=== PATIENT | female | born 1965 | race Caucasian/White ===

== ENCOUNTER → 2024-11-07 | Outpatient (CLI) | payer OTHER, SELFPAY ==
[2024-11-10 09:08] LABS: HPV APTIMA, High Risk Negative (Negative)
== END | disposition home or self-care (01) ==
PROVIDERS: Referring Provider Nurse Practitioner Family; Visit Provider Nurse Practitioner Family
DX: Z12.4 Encounter for screening for malignant neoplasm of cervix (principal)
CPT/HCPCS: 87624; 88175; G0145